=== PATIENT | male | born 1955 | race Caucasian/White ===

== ENCOUNTER 2017-01-25 12:07 | Inpatient (IN) | payer BC ==
[~2017-01-25] VITALS: Ht 175.3 cm; Wt 120.0 kg
--- NOTE | ~2017-01-25 | HEMODYNAMI ---
PATIENT:YOMAIRA BRITO MEDICAL RECORD: [id number] : 57 LOCATION:[facility] D.2116 ADMISSION DATE: 01/25/17 Generatedon:01/25/201713:40 Patient name: YOAMIRA BRITO Patient #: [id number] SSN: : 1955 Date of study: 01/25/2017 Page: Of Hemodynamic Procedure Report Patient Data Patient Demographics Procedure consent was obtained First Name: YOMAIRA Gender: Male Last Name: DARYL : 1955 Patient #: [id number] Age: 61 year(s) Race: Unknown Additional ID: [id number] Contact details Address: [place] [address] State: [place] City: [place] Zip code: [address] Past Medical History Allergies Allergen Reaction Date Comments Reported Other allergy 01/25/2017 ASA, Flagyl Admission Admission Data Admission Date: 01/25/2017 Admission Time: 12:33 Room #: 2116 Weight (lbs.): 260 Weight (kg.): 117.93 Procedure Procedure Types Cath Procedure Diagnostic Procedure LHC LH w/Coronaries PCI Procedure Coronary Stent Coronary Stent Initial Miscellaneous Procedures Moderate Sedation up to 15 minutes Procedure Description Procedure Date Procedure Date: 01/25/2017 Procedure Start Time: 13:16 Procedure End Time: 13:34 Procedure Staff Name Function Prabhu Abad MD Performing Physician Raúl Mas RN Nurse Kaye Jung RT Monitor Nena Trevino RT Monitor Henry Cristina RT Scrub Procedure Data Cath Procedure Fluoroscopy Diagnostic fluoroscopy Total fluoroscopy Time: 4.5 time: 4.5 min min Diagnostic fluoroscopy Total fluoroscopy dose: 558 dose: 558 mGy mGy Contrast Material Contrast Material Type Amount (ml) Isovue 300 95 Entry Location Entry Primary Successful Side Size Upsize Upsize Entry Closure Kincaid ccessful Closure Location (Fr) 1 (Fr) 2 (Fr) Remarks Device Remarks Radial Right 6 Fr Mechanical tr artery Short Compression Estimated blood loss: 10 ml Diagnostic catheters Device Type Used For End Catheter Placement Diagnostic Terumo 5Fr Procedure [place] 110cm catheter Procedure Complications No complications Procedure Medications Medication Administration Route Dosage Oxygen NC 2 l/min Heparin Flush Bag added to field 2 bags (1000units/500ml NS) 0.9% NaCl I.V. 100 ml/hr Plavix P.O. 600 mg Fentanyl I.V. 50 mcg Versed I.V. 1 mg Heparin Bolus I.V. 4000 units Integrilin (Bolus I.V. 10.7 ml 2mg/ml) Integrilin (Bolus wasted 9.3 ml 2mg/ml) Nitroglycerin IC/IA I.C. 400 mcg Nitroglycerin IC/IA I.C. 200 mcg Hemodynamics Rest Heart Rate: 77 (bpm) Snapshots Pre Cath Intra NCS Post Cath Vital Signs Time Heart Resp SPO2 etCO2 NIBP (mmHg) Rhythm Pain Sedation Rate (ipm) (%) (mmHg) Status Level (bpm) 13:07:03 77 16 98 0 143/88(111) NSR 0 (11) 10(A) , No pain 13:11:58 82 17 97 0 138/82(106) NSR 0 (11) 10(A) , No pain 13:16:49 87 18 98 0 143/91(110) NSR 0 (11) 10(A) , No pain 13:21:40 87 13 93 0 129/80(107) NSR 0 (11) 10(A) , No pain 13:26:27 93 18 96 0 133/84(106) NSR 0 (11) 10(A) , No pain 13:31:18 77 19 97 0 148/85(109) NSR 0 (11) 10(A) , No pain Medications Time Medication Route Dose Verified Delivered Reason Notes Effectiveness by by 13:11:25 Oxygen NC 2 Prabhu Olsen Per physician l/min Pollo Mas RN 13:11:34 Heparin Flush added 2 Prabhu Olsen used for Bag to bags Pollo Mas veterinary physiologist (1000units/500ml field NS) 13:11:42 0.9% NaCl I.V. 100 Prabhu Olsen Per physician ml/hr Pollo Mas RN 13:11:53 Plavix P.O. 600 Prabhu Olsen for mg Pollo Mas RN antiplatelet therapy 13:12:36 Fentanyl I.V. 50 Prabhu Olsen for sedation mcg Pollo Mas RN 13:12:43 Versed I.V. 1 mg Prabhu Olsen for sedation Pollo Mas RN 13:22:10 Heparin Bolus I.V. 4000 Prabhu Olsen for units Pollo Mas RN anticoagulation 13:27:27 Integrilin I.V. 10.7 Prabhu Olsen for (Bolus 2mg/ml) ml Pollo Mas RN anticoagulation 13:27:38 Integrilin wasted 9.3 Prabhu Olsen for (Bolus 2mg/ml) ml Pollo Mas RN anticoagulation 13:28:35 Nitroglycerin I.C. 400 Prabhu Pelletier for IC/IA mcg Pollo Abad MD vasodilation 13:31:24 Nitroglycerin I.C. 200 Prabhu Pelletier for IC/IA mcg Pollo Abad MD vasodilation Procedure Log Time Note 12:44:39 Henry Cristina RT(R) sent for patient. Start room use. 12:44:40 Time tracking: Regular hours 12:44:44 Plan of Care:Hemodynamics will remain stable., Cardiac rhythm will remain stable., Comfort level will be maintained., Respiratory function will remain adequate., Patient/ family verbilizes understanding of procedure., Procedure tolerated without complication., Recovers from procedure without complications.. 12:58:45 Patient received from Med II to CCL 1 Alert and oriented. Tansferred to table in Supine position. 12:58:46 Correct patient and procedure confirmed by team. 12:58:48 Warm blankets applied, and sunita hugger turned on for patient comfort. 12:58:49 Signed procedure consent form obtained from patient. 12:58:50 ECG and BP/O2 sat monitors applied to patient. 13:00:46 Patient Weight : 260 lbs 13:05:58 Vital chart was started 13:06:47 Baseline sample Acquired. 13:06:53 Rhythm: sinus rhythm 13:06:57 Full Disclosure recording started 13:07:35 H&P Date Dictated: 01/25/2017 Within 30 days and on chart.. 13:07:37 Pre-procedure instructions explained to patient. 13:07:42 Family in waiting room. 13:07:45 Patient NPO since Midnight. 13:08:03 Patient allergic to Other allergyASA, Flagyl 13:08:07 Is the patient allergic to Iodine/contrast media? No. 13:08:10 Was the patient premedicated? Yes 13:08:51 Is patient on blood thinner?No 13:08:57 Patient diabetic? No. 13:09:03 Snore? Yes 13:09:06 Sleep apnea? Unknown 13:09:13 Dentures? No ? 13:09:18 Patient pain scale 1/10 ?. 13:09:38 IV patent on arrival in right forearm with 0.9% NaCl at O. 13:09:45 Lab results completed and on chart. 13:09:51 Right Radial & Right Groin area was prepped with chlora-prep and draped in sterile fashion 13:09:53 Alarms reviewed by R. N. 13:09:54 Sharps counted by scrub and verified by R.N. 13:09:56 Physician arrived 13:09:57 --------ALL STOP TIME OUT------ 13:09:59 Final Timeout: patient, procedure, and site verified with staff and physician. All members of the team are in agreement. 13:10:01 Right Radial & Right Groin site verified by team. 13:10:06 Physical assessment completed. ASA score P 2 - A patient with mild systemic disease as per Prabhu Abad MD. 13:10:11 Sedation plan: IV Moderate Sedation Medication:Versed, Fentanyl 13:11:00 Use device set Radial Dx 13:11:01 Acist Syringe opened to sterile field. 13:11:02 Medline Cath Pack opened to sterile field. 13:11:02 Bag Decanter opened to sterile field. 13:11:03 Terumo 6Fr Slender Glidesheath opened to sterile field. 13:11:03 St Krunal 260cm J .035 wire opened to sterile field. 13:11:04 Acist Hand Control opened to sterile field. 13:11:04 Acist Manifold opened to sterile field. 13:11:04 Tegaderm 4 x 4 opened to sterile field. 13:11:07 MBrace Wrist Support opened to sterile field. 13:11:25 Oxygen 2 l/min NC was administered by Raúl Mas RN; Per physician; 13:11:34 Heparin Flush Bag (1000units/500ml NS) 2 bags added to field was administered by Raúl Mas RN; used for procedure; 13:11:42 0.9% NaCl 100 ml/hr I.V. was administered by Raúl Mas RN; Per physician; 13:11:53 Plavix 600 mg P.O. was administered by Raúl Mas RN; for antiplatelet therapy; 13:12:36 Fentanyl 50 mcg I.V. was administered by Raúl Mas RN; for sedation; 13:12:43 Versed 1 mg I.V. was administered by Raúl Mas RN; for sedation; 13:15:20 Procedure started. 13:15:44 Zero performed for pressure channel P1 13:16:46 Local anesthetic to right radial artery with Lidocaine 2% by Prabhu Abad MD.INITIAL ACCESS ONLY 13:16:57 A 6 Fr Short sheath was inserted into the Right Radial artery 13:17:55 A Diagnostic [employer] 5Fr [place] 110cm catheter was advanced over the wire and used for Procedure. 13:18:01 LV angiography performed. 13:19:25 LV angiography performed. 13:19:32 EF : 60 % 13:19:41 RCA angiography performed. 13:21:36 LCA angiography performed. 13:21:39 Catheter removed. 13:21:46 Proceeding to intervention. 13:22:10 Heparin Bolus 4000 units I.V. was administered by Raúl Mas RN; for anticoagulation; 13:22:41 Medtronic Launcher 6Fr AR 2.0 guide catheter opened to sterile field. 13:22:41 Cressey [employer] Choice PT Extra Support 182cm wire opened to sterile field. 13:22:42 Merit BasixCompak Inflation Kit opened to sterile field. 13:23:08 6 Fr AR2 guide catheter was inserted over the wire 13:23:13 ex support wire advanced. 13:23:16 Wire advanced across lesion. 13:24:11 Inflation number: 1 A Euphora 3.0 x 20 Balloon was prepped and advanced across the Mid RCA, then inflated to 13 [facility] for 0:09 (min:sec). 13:24:44 multiple inflations to 13 13:24:51 Balloon removed over the wire. 13:26:47 Inflation Number: 2 A Medtronic Integrity Rx 3.5 x 30 stent was prepped and advanced across the Mid RCA. The stent was deployed at 17 [facility] for 0:25 (min:sec). 13:27:27 Integrilin (Bolus 2mg/ml) 10.7 ml I.V. was administered by Raúl Mas RN; for anticoagulation; 13:27:38 Integrilin (Bolus 2mg/ml) 9.3 ml wasted was administered by Raúl Mas RN; for anticoagulation; 13:28:35 Nitroglycerin IC/IA 400 mcg I.C. was administered by Prabhu Abad MD; for vasodilation; 13:31:24 Nitroglycerin IC/IA 200 mcg I.C. was administered by Prabhu Abad MD; for vasodilation; 13:31:45 Terumo TR Band Large opened to sterile field. 13:32:10 Wire removed. 13:32:11 Guide catheter removed. 13:32:33 Sheath removed intact; hemostasis achieved with Mechanical Compression to the Right Radial artery. 13:32:41 Procedure ended.(Physican Out) 13:32:56 Fluoroscopy time 04.50 minutes. 13:33:01 Fluoroscopy dose: 558 mGy 13:33:01 Flurop Dose total: 558 13:33:05 Contrast amount:Isovue 300 95ml. 13:33:07 Sharps counted by scrub and verified by R.N. 13:33:10 TR band inflated with 10cc of air. 13:33:26 Insertion/operative site no bleeding no hematoma. 13:33:27 Post Procedure Pulses reassessed and unchanged 13:33:32 Post-procedure physical assessment completed. ASA score P 2 - A patient with mild systemic disease as per Prabhu Abad MD. 13:33:35 Post procedure rhythm: unchanged. 13:33:38 Estimated blood loss: 10 ml 13:33:40 Post procedure instruction explained to patient.Patient verbalizes understanding. 13:33:51 Procedure type changed to Cath procedure, Diagnostic procedure, LHC, LHC w/Coronaries, PCI procedure, Coronary Stent, Coronary Stent Initial, Miscellaneous Procedures, Moderate Sedation up to 15 minutes 13:33:53 Procedure and supply charges have been captured, reviewed, submitted and are correct. 13:34:36 Procedure Complication : No complications 13:34:39 Vital chart was stopped 13:34:41 See physician's report for complete and final results. 13:34:44 Report given to [facility]. 13:34:48 Patient transfered to [facility] with Bed. 13:34:51 Procedure ended. 13:34:51 Full Disclosure recording stopped 13:34:54 End room use (Document Last) 13:38:17 ACC-PCI Only Patient was given prescriptions, or instructed by Prabhu Abad MD to start/continue the following medications upon discharge: Plavix Intervention Summary Intervention Notes Time ActionType Lesion and Equipment Action# Pressure Duration Attributes Used 13:24:11 Inflate Mid RCA Euphora 1 13 00:09 balloon 3.0 x 20 Balloon 13:26:47 Place stent Mid RCA Medtronic 2 17 00:25 Integrity Rx 3.5 x 30 stent Device Usage Item Name Manufacture Quantity Catalog Number Hospital Part Current Minim al Lot# / Charge Number Stock Stock Serial# Code Acist Acist 1 75239 [id number] [id number] [id number] 20 Syringe Medical Systems Inc Medline Cardinal 1 [id number] 053402 61009 198746 5 Cath Pack Health Bag Microtek 1 2002S 773575 81699 278089 5 Hylete [employer] Inc. Terumo 6Fr Terumo 1 [id number] 954901 069614 812656 [address] Krun[address] St Krunal 1 [id number] 662956 822314 863699 30 260cm J .035 wire Acist Hand Acist 1 09194 564420 523175 926073 5 Control Medical Systems Inc Acist Acist 1 28131 294625 456235 002798 5 Manifold Medical Systems Inc Tegaderm 4 3M 1 1626W 320799 360393 018917 5 x 4 MBrace Advanced 1 140-0250-00 508208 40676 056393 5 Wrist Vascular Support Dynamics Diagnostic Terumo 1 40-3343 065976 763204 617024 5 Terumo 5Fr [place] 110cm catheter Medtronic Medtronic 1 [id number] 904940 10781 927241 1 Launcher 6Fr AR 2.0 guide catheter Cressey Sci Cressey 1 [id number] 726743 571055 488055 5 Choice PT Scientific Extra Support 182cm wire Merit Merit 1 [id number] 932392 089029 696709 15 Philo Medical Inflation Kit Euphora 3.0 Medtronic 1 [id number] 782718 115781 668755 5 [id number] x 20 Balloon Medtronic Medtronic 1 [id number] 857257 571568 613505 5 [id number] Integrity Rx 3.5 x 30 stent Terumo TR Terumo 1 [id number] 242771 701137 656840 40 Band Large Signature Audit [place] Stage Time Signature Unsigned Intra-Procedure 01/25/2017 Kaye Jung 1:40:56 PM RT(R) Signatures Monitor : Kaye Jung Signature : RT Date : Time : Monitor : Nena Trevino Signature : RT Date : Time : [address] [address]
[2017-01-25 14:24] LABS: BASOPHILS 0.2 % (0-2); EOSINOPHILS 0.6 % (0-7); HEMATOCRIT 43.9 % (42.0-54.0); HEMOGLOBIN 14.5 g/dL (13.5-17.5); IMMATURE GRANULOCYTES 0.3 % (0-5); LYMPHOCYTES 15.9 % (15-50); MCH 30.1 pg (26.0-34.0); MCV 91.1 fL (80.0-100.0); MEAN PLATELET VOLUME 11.2 fL (7.4-10.4); MONOCYTES 9.3 % (2-11); NEUTROPHILS 73.7 % (40-80); PLATELET COUNT 171 10x3/uL (130-400); RBC 4.82 10x6/uL (4.20-6.10); RDW 13.4 % (11.5-14.5)
[2017-01-25 14:47] VITALS: BP 126/88; Ht 175.3 cm; Wt 120.0 kg
[2017-01-25 15:12] LABS: CALC OSMOLALITY 279 mosm/kg (275-300); CALCIUM 8.6 mg/dL (8.5-10.1); CARBON DIOXIDE 27.8 mmol/L (21.0-32.0); CHLORIDE - SERUM 105 mmol/L (98-107); CREATININE - SERUM 0.8 mg/dL (0.6-1.3); GLUCOSE 116 mg/dL (74-106); POTASSIUM - SERUM 4.2 mmol/L (3.5-5.1); SODIUM 141 mmol/L (136-145); UREA NITROGEN 8 mg/dL (7-18); eGFR NON AFRICAN AMERICAN > 90 mL/min (90-120)
[2017-01-25 21:12] VITALS: BP 130/76
[2017-01-26 00:52] VITALS: BP 129/81
[2017-01-26 05:53] VITALS: BP 104/77
[2017-01-26 07:55] VITALS: BP 129/67
[2017-01-26] MEDS ORDERED: TENORMIN25 MG PO (12:47)
[2017-01-26] MEDS ORDERED: PRAVACHOL20 MG PO (12:47)
[2017-01-26] MEDS ORDERED: PLAVIX75 MG PO (12:47)
--- NOTE | 2017-01-30 09:02 | DS ---
PATIENT:YOMAIRA BRITO :57 MEDICAL RECORD: [id number] DISCHARGE SUMMARY ADMISSION DATE: 01/25/17 DISCHARGE DATE: 01/26/17 DIAGNOSES: 1. Non-Q-wave myocardial infarction. 2. Coronary artery disease. 3. Percutaneous transluminal coronary angioplasty stent to right coronary artery this admission. HISTORY: This is a gentleman with no previous cardiac history, who presents to [facility] with chest discomfort, rules in for an acute myocardial infarction that is non-Q-wave. He is transferred here, underwent cardiac catheterization revealing critical disease of the RCA. He underwent successful PTCA stent of the RCA. Discharged home with the addition of aspirin, Plavix, atenolol, Pravachol to his medical regimen. He will follow up with [facility] in 1 month. TRANSINT:[id number] Voice Confirmation ID: [id number] DOCUMENT ID: [id number] TRINI AVILA MD at 0902 CC: [id number] DICTATION DATE: 01/26/17 113 CLINICAL SCIENTIST: 01/26/17 1245 DIS IN 01/26/17 [facility] [address] [place] [address]
--- NOTE | 2017-01-30 09:02 | HP ---
PATIENT: YOMAIRA BRITO MEDICAL RECORD: [id number] ACCOUNT: [id number] LOCATION:[address] : 57 ADMISSION DATE: 01/25/17 HISTORY AND PHYSICAL EXAMINATION DIAGNOSES: 1. Non-Q-wave myocardial infarction. 2. Chest pain. 3. Coronary artery disease. HISTORY: This is a gentleman with no previous cardiac history, who presented to [facility] with chest pain and rules in for a non-Q-wave myocardial infarction. He continues to have episodes of chest pain. REVIEW OF SYSTEMS: The patient reports easy bruising but reports no swollen glands. The patient reports no fever, no night sweats, no significant weight gain, no significant weight loss. No significant exercise tolerance. The patient reports no dry eyes, no irritation, no vision change. Patient reports no difficulty hearing and no ear pain. Patient reports no frequent nose bleeds or nose and sinus problems. Patient reports on arm pain on exertion. No shortness of breath while lying down. No history of heart murmur. Patient reports no cough, no wheezing or coughing up blood. Patient reports no abdominal pain, no vomiting. Normal appetite. No diarrhea and not vomiting blood. No nausea and no constipation. Patient reports no incontinence. No difficulty urinating. No hematuria. No increased frequency. Patient reports no muscle aches. No weakness, no arthralgias, no back pain. No swelling of the extremities. Patient reports no abnormal mole, no jaundice, no rashes. Reports no loss of consciousness. No weakness and no numbness. No seizures, dizziness, or headaches. The patient reports no depression, no sleep disturbance, feeling safe in a relationship and no alcohol abuse. Patient reports on fatigue. Reports no runny nose or sinus pressure. No itching, no hives, and no frequent sneezing. PHYSICAL EXAMINATION: GENERAL APPEARANCE: Well-nourished, well-developed, appears stated age. Level of distress, comfortable. PSYCHIATRIC: Mental status, alert, normal affect. Orientation, oriented to time, place and person. EYES: Lids and conjunctiva, noninjected. No discharge, no pallor. ENT: Lips, teeth, gums, normal dentition. Oropharynx, no cyanosis, no pallor. NECK: Carotid arteries, bilateral normal upstroke, no bruits, no thrills. JUGULAR VEINS: No jugular venous pressure or distention. CERVICAL LYMPH NODES: Nontender, nonenlarged. THYROID: Not enlarged. Nontender. No nodules. LUNGS: Respiratory effort, unlabored. CHEST: Normal curvature. No thoracic deformity. No chest wall tenderness. Percussion, resonant. Auscultation, clear. No wheezes, no rales, no rhonchi. CARDIOVASCULAR: Precordial exam, nondisplaced. No heaves or pericardial thrills. Rate and rhythm, regular. Heart sounds, normal S1, normal S2. No S3, no gallop, no rub. Systolic murmur, not heard. Diastolic murmur, not heard. EXTREMITIES: No cyanosis, no edema. Peripheral pulses, full and equal in all extremities, except as noted. No bruits appreciated. ABDOMEN: Soft, nondistended. Normal aorta. No bruit. Nontender. No masses. Liver, nontender, no hepatomegaly. Spleen, nontender, no splenomegaly. MUSCULOSKELETAL: No joint tenderness. No joint swelling. No erythema. HISTORY AND PHYSICAL [id number] YOMAIRA BRITO NEUROLOGICAL: Normal gait, normal strength, normal tone. SKIN: Warm and dry. OVERALL IMPRESSION: Non-Q-wave myocardial infarction, most likely he does have hemodynamically significant coronary artery disease. We will proceed with coronary angiography. Further care depends on findings of the angiography. TRANSINT:[id number] Voice Confirmation ID: [id number] DOCUMENT ID: [id number] TRINI AVILA MD at 0902 CC: [id number] DICTATION DATE: 01/26/17 1137 FUR LINER: 01/26/17 1210 DIS IN 01/26/17 [address] [place] [address]
--- NOTE | 2017-01-30 09:02 | OP ---
PATIENT NAME: YOMAIRA BRITO MEDICAL RECORD: [id number] :57 LOCATION:D.M2 D.2116 ADMISSION DATE:01/25/17 SURGEON: TRINI AVILA MD DATE OF OPERATION: 01/25/2017 PROCEDURES: 1. PTCA and stent of RCA. 2. Left heart catheterization. 3. Selective coronary angiography. 4. Left ventriculogram. INDICATION: Non-Q-wave myocardial infarction. PROCEDURE IN DETAIL: After informed consent was obtained and after detailed explanation of risks and benefits as well as alternative therapies, the patient elected to proceed with angiogram and angioplasty. The right radial area was prepped and draped in normal sterile fashion. The right radial artery was cannulated via modified Seldinger technique with placement of 6-Indian sheath. All catheters were exchanged through the sheath. FINDINGS: Left ventriculogram was performed in standard 30-degree SCOTT view, reveals good cardiac wall motion throughout all segments. Overall ejection fraction estimated at 60%. SELECTIVE CORONARY ANGIOGRAPHY: 1. Left main shows no significant angiographic disease. 2. Left anterior descending has mild irregularities, but no flow-limiting stenosis. 3. Left circumflex has mild irregularities, but no flow-limiting stenosis. 4. Right coronary has a 99% stenosis proximally. PTCA AND STENT OF THE RIGHT CORONARY: Stent used was 3.5 x 30-mm Integrity. Result was 0% residual stenosis. OVERALL IMPRESSION: Successful PTCA and stent of the right coronary artery going from 99% initial stenosis to 0% residual stenosis. TRANSINT:[id number] Voice Confirmation ID: [id number] DOCUMENT ID: [id number] TRINI AVILA MD at 0902 CC: [id number] DICTATION DATE: 01/26/17 1140 SENIOR OFFICE SUPPORT ASSISTANT SOSA: 01/26/17 1305 DIS IN 01/26/17 [address] [place] [address]
== END 2017-01-26 13:45 | disposition home or self-care (01) | DRG 249 ==
LOC: D.M2 12:07
PROVIDERS: ADMIT Internal Medicine Interventional Cardiology
PROC: B2111ZZ Fluoroscopy of Multiple Coronary Arteries using Low Osmolar Contrast (ICD-10-PCS; 2017-01-25)
PROC: B2151ZZ Fluoroscopy of Left Heart using Low Osmolar Contrast (ICD-10-PCS; 2017-01-25)
PROC: 02703DZ Dilation of Coronary Artery, One Artery with Intraluminal Device, Percutaneous Approach (ICD-10-PCS; principal; 2017-01-25 10:00)
PROC: 4A023N7 Measurement of Cardiac Sampling and Pressure, Left Heart, Percutaneous Approach (ICD-10-PCS; 2017-01-25 10:00)
DX: I21.4 Non-ST elevation (NSTEMI) myocardial infarction (principal); I25.10 Atherosclerotic heart disease of native coronary artery without angina pectoris